=== PATIENT | female | born 1950 | race Caucasian/White ===

== ENCOUNTER 2022-01-23 19:15 | Emergency (ER) | payer MEDICARE ==
[2022-01-23] MEDS ORDERED: Sodium Chloride 0.9% 10 ML Syringe FLUSH PRN (19:33)
[2022-01-23] MEDS: Sodium Chloride 0.9% 1,000 ML IV ONE (19:44)
[2022-01-23] MEDS: Metoclopramide 10 MG/2 ML SDV IVPUSH ONE (19:48)
[2022-01-23] MEDS: diphenhydrAMINE 50 MG/ML SDV IV ONE (19:48)
[2022-01-23] MEDS: Ondansetron 4 MG/2 ML SDV IVPUSH ONE (19:49)
[2022-01-23 19:58] LABS: CHLORIDE,CL 106 mEq/L (98-106); SODIUM,NA 143 mEq/L (136-145)
[2022-01-23] MEDS: Potassium Chloride 10% 20 MEQ/15 ML Soln 15 ML UD Cup PO ONE (21:30)
[2022-01-23] MEDS: Acetaminophen 325 MG Tab PO ONE (21:31)
[2022-01-23] MEDS: Take Home: Ondansetron 4 MG Tab.DIS, 2 Tab Pack PO ONE (21:31)
== END 2022-01-23 21:46 | disposition home or self-care (01) ==
LOC: CC.ED 19:15
DX: K52.9 Noninfective gastroenteritis and colitis, unspecified (principal); E87.6 Hypokalemia; Z20.822 Contact with and (suspected) exposure to COVID-19; Z88.6 Allergy status to analgesic agent; Z88.5 Allergy status to narcotic agent
CPT/HCPCS: 36415; 80053; 81001; 83605; 83735; 85025; 86140; 87086; 87804; 96374; 96375; 99284; 99284-25; A9270-GY; J1200; J2405; J2765; J7030; U0002